=== PATIENT | male | born 1950 | race Caucasian/White ===

== ENCOUNTER 2016-11-04 14:58 | Emergency (ER) | payer MEDICARE, SELFPAY | END 2016-11-04 16:32 | disposition home or self-care (01) | LOC: FER 14:58 | DX: J18.9 Pneumonia, unspecified organism (principal); J44.9 Chronic obstructive pulmonary disease, unspecified; I10 Essential (primary) hypertension; E11.9 Type 2 diabetes mellitus without complications; E78.5 Hyperlipidemia, unspecified; Z88.8 Allergy status to other drugs, medicaments and biological substances; Z91.013 Allergy to seafood; Z91.010 Allergy to peanuts; Z90.2 Acquired absence of lung [part of] | CPT/HCPCS: 71020 ==

== ENCOUNTER 2016-12-24 19:42 | Emergency (ER) | payer MEDICARE ==
[2016-12-24 21:21] LABS: BASOPHIL 0.4 % (0-2); EOSINOPHIL 3.1 % (0-7); HCT 41.8 % (42.0-52.0); HGB 14.4 g/dl (13.2-18.0); LYMPHOCYTE 26.3 % (15-48); MCH 28.5 pg (25.0-31.0); MCHC 34.4 g/dL (32.0-36.0); MCV 82.8 fL (78.0-100.0); MONOCYTE 10.5 % (0-12); MPV 9.9 fL (6.0-9.5); NEUTROPHIL 59.7 % (41-80); PLT 246 K/uL (150-400); RBC 5.05 M/uL (4.70-6.00); RDW 13.3 % (11.5-14.0); WBC 8.4 K/uL (4.0-10.5)
[2016-12-24 21:39] LABS: CREATININE 0.8 mg/dL (0.7-1.2)
== END 2016-12-24 21:47 | disposition home or self-care (01) ==
LOC: FER 19:42
PROVIDERS: Emergency Medicine Emergency Medical Services
DX: J01.10 Acute frontal sinusitis, unspecified (principal); R06.2 Wheezing; R06.02 Shortness of breath; E11.9 Type 2 diabetes mellitus without complications; I10 Essential (primary) hypertension; E78.5 Hyperlipidemia, unspecified; Z85.118 Personal history of other malignant neoplasm of bronchus and lung; Z87.891 Personal history of nicotine dependence; Z88.8 Allergy status to other drugs, medicaments and biological substances; Z91.041 Radiographic dye allergy status; Z91.013 Allergy to seafood; Z79.84 Long term (current) use of oral hypoglycemic drugs; Z79.899 Other long term (current) drug therapy; Z90.2 Acquired absence of lung [part of]
CPT/HCPCS: 36415; 80048; 85025; 99283